=== PATIENT | female | born 1975 | race Caucasian/White ===

== ENCOUNTER → 2017-02-28 | Outpatient (CLI) | payer BC ==
--- NOTE | 2017-02-28 14:40 | Diagnostic Imaging Report ---
EXAMINATION: Bilateral diagnostic mammogram with implant displaced and implant included views. The current study was also evaluated with a Computer Aided Detection (CAD) system. INDICATION: Lumps in the medial and lateral aspects of the right breast. COMPARISON: No prior studies are available for comparison. FINDINGS: Bilateral retropectoral symmetric implants are seen. The breast parenchyma is extremely dense which may decrease mammographic sensitivity. There is an asymmetry along the upper aspect of the right breast which, on focal compression views, demonstrates persistent focal asymmetry with suggestion of a lobulated nodule measuring 1.2 cm. Other compression views in the medial aspect demonstrate loosely clustered punctate calcifications with no significant heterogeneity favoring a benign etiology. IMPRESSION: Confirmed nodule along the outer aspect of the right breast with a lobulated appearance. Background dense parenchyma. An ultrasound evaluation is pending. ACR BI-RADS Category 0: Incomplete. (Needs additional imaging evaluation). Result letter will be mailed to the patient. Note: At least 10% of breast cancer is not imaged by mammography. Dictated by: Dictated on workstation # [id number]
--- NOTE | 2017-02-28 15:06 | Diagnostic Imaging Report ---
EXAMINATION: Right breast ultrasound. INDICATION: Right breast lump. FINDINGS: The palpable lump is at the 10:30 position, 9 cm from the nipple. It is 1.0 x 0.7 x 1.4 cm in size, fairly homogeneous, hypoechoic and with peripheral internal vascularity seen with color Doppler. There is another nodule, measuring 1.4 x 1.3 x 0.7 cm, at the 4:30 position, 6 cm from the nipple. It appears minimally heterogenous, probably related to a calcification and cystic component with internal vascularity seen. There is no shadowing. Lobulated circumscribed margins are seen. At the 7:30 o'clock position, 6 cm from the nipple, there is a 0.5 x 0.4 x 0.5 cm homogeneous circumscribed nodule seen with no internal vascularity demonstrated with color Doppler. IMPRESSION: There are three nodules, the largest is 1.4 cm at the 4:30 o'clock position, 6 cm from the nipple. They are fairly homogeneous although the 4:30 o'clock position lesion is slightly heterogenous with probable internal cystic and calcific components. 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 Confirmation with an ultrasound-guided biopsy of the dominant slightly heterogenous lesion is recommended. The findings and recommendations were discussed with the patient before this dictation. ACR BI-RADS Category 4A: Low suspicion of malignancy. Result letter will be mailed to the patient. Note: At least 10% of breast cancer is not imaged by mammography. Report was faxed to the office of Dr. Ambika Yi at 3:05 p.m., by shara. Dictated by: Dictated on workstation # [id number]
== END ==
LOC: RAD 13:19
PROVIDERS: ATTEND Obstetrics & Gynecology
DX: N63 Unspecified lump in breast (principal); Z98.82 Breast implant status
CPT/HCPCS: 76641; 77066

== ENCOUNTER → 2017-03-08 | Outpatient (CLI) | payer BC ==
[~2017-03-08] VITALS: Ht 172.7 cm; Wt 72.6 kg
[2017-03-08 15:18] VITALS: BP 118/64
[2017-03-08] MEDS: LIDOCAINE 1% INJ 20 ML (XYLOCAINE) VIAL INJ ONE (15:34)
[2017-03-08 16:03] VITALS: BP 112/68
--- NOTE | 2017-03-08 16:28 | Diagnostic Imaging Report ---
EXAMINATION: Ultrasound-guided biopsy of a breast mass. A metallic clip placed to tatum biopsy site. INDICATION: Right breast mass. CONSENT: Informed consent was obtained from the patient. The risks, benefits, potential complications and alternatives were reviewed and all questions answered to the patient's satisfaction. FINDINGS: Ultrasound images demonstrate a hypoechoic mass at 4:30 o'clock position, 6 CM from the nipple. PROCEDURE: After sterile preparation and draping, 1% lidocaine was utilized for local anesthesia. A 13-gauge guide needle was introduced under live ultrasound guidance to the level of the lesion. Good needle position was documented with ultrasound images. 14-gauge biopsy needle was utilized and core biopsies were performed. Multiple samples were obtained and sent to pathology. A metallic clip was placed to tatum the site of the biopsy. A subsequent mammogram is performed and confirms the proper positioning of the clip. The patient tolerated the procedure well with no immediate complications. 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 BI-RADS 4A. Dictated by: Dictated on workstation # [id number]
--- NOTE | 2017-03-08 20:29 | Diagnostic Imaging Report ---
EXAMINATION: CC and lateral projection views and the implant displaced projection were performed. INDICATION: Documentation of clip position after ultrasound-guided biopsy. FINDINGS: Satisfactory clip position is seen in the medial inferior aspect of the right breast after ultrasound-guided biopsy. The nodule is not visible by mammography, probably obscured by the underlying dense parenchyma. IMPRESSION: Satisfactory clip position in the inferior medial aspect of the right breast. Pathology results are pending. ACR BI-RADS Category 4A: Low suspicion of malignancy. Result letter will be mailed to the patient. Note: At least 10% of breast cancer is not imaged by mammography. Dictated by: Dictated on workstation # [id number]
== END ==
LOC: RAD 14:32
PROVIDERS: ATTEND Obstetrics & Gynecology
DX: N63 Unspecified lump in breast (principal)
CPT/HCPCS: 19083

== ENCOUNTER → 2018-04-26 | Outpatient (CLI) | payer BC ==
--- NOTE | 2018-04-26 15:57 | Diagnostic Imaging Report ---
INDICATION: Routine screening. COMPARISON: 02/28/2017. TECHNIQUE: 2D and 3D bilateral screening mammography was performed with CAD. FINDINGS: Bilateral breast implants are again noted. The implant contours are smooth. No evidence of extracapsular rupture is seen. Both breasts are heterogeneously dense, limiting the sensitivity of mammography. A biopsy clip in the medial right breast is seen. There are benign calcifications present. No new mass or malignant appearing microcalcifications are seen. The axillae are unremarkable. IMPRESSION: Stable bilateral mammograms. No mammographic features suspicious for malignancy are identified. ACR BI-RADS Category 2: Benign findings. Result letter will be mailed to the patient. Note: At least 10% of breast cancer is not imaged by mammography. Dictated by: Dictated on workstation # [id number]
== END ==
LOC: RAD 14:00
PROVIDERS: ATTEND Nurse Practitioner
DX: Z12.31 Encounter for screening mammogram for malignant neoplasm of breast (principal)
CPT/HCPCS: 77067

== ENCOUNTER → 2020-05-07 | Outpatient (CLI) | payer BC ==
--- NOTE | 2020-05-10 09:51 | Diagnostic Imaging Report ---
INDICATION: Routine screening. COMPARISON: 04/26/2018 and -02/28/2017. TECHNIQUE: 2D and 3D bilateral screening mammography was performed with CAD. FINDINGS: Both breasts are heterogeneously dense, limiting the sensitivity of mammography. Bilateral subpectoral breast implants are again noted. The implant contours are smooth. A biopsy clip in the medial right breast is again noted. There are benign calcifications in both breasts. The breast parenchymal pattern appears to be stable. No dominant mass or malignant appearing microcalcifications are seen. The axillae are unremarkable. IMPRESSION: No mammographic features suspicious for malignancy are identified. ACR BI-RADS Category 2: Benign findings. Result letter will be mailed to the patient. Note: At least 10% of breast cancer is not imaged by mammography. Dictated by: Dictated on workstation # [id number]
== END ==
LOC: RAD 14:00
PROVIDERS: ATTEND Nurse Practitioner Women's Health
DX: Z12.31 Encounter for screening mammogram for malignant neoplasm of breast (principal)
CPT/HCPCS: 77063; 77067

== ENCOUNTER → 2021-09-27 | Outpatient (CLI) | payer BC ==
--- NOTE | 2021-09-27 17:50 | Diagnostic Imaging Report ---
INDICATION: Routine screening. COMPARISON is made with prior mammograms 05/07/2020 and 04/26/2018. 2-D and 3-D bilateral screening mammography was performed with CAD. Bilateral subpectoral breast implants are noted. Implant contours are smooth. Both breasts are heterogeneously dense, limiting the sensitivity of mammography. There are benign calcifications in both breasts. A biopsy marker clip in the lower inner right breast is again noted. No mass or malignant-appearing microcalcifications are seen. Axillae are unremarkable. IMPRESSION: BI-RADS Category 2 No mammographic features suspicious for malignancy are identified. ACR BI-RADS Category 2: Benign findings. Result letter will be mailed to the patient. Note: At least 10% of breast cancer is not imaged by mammography. Dictated by: Dictated on workstation # [id number]
== END ==
LOC: RAD 13:15
PROVIDERS: ATTEND Obstetrics & Gynecology
DX: Z12.31 Encounter for screening mammogram for malignant neoplasm of breast (principal)
CPT/HCPCS: 77063; 77067

== ENCOUNTER → 2022-09-29 | Outpatient (CLI) | payer BC ==
--- NOTE | 2022-10-03 13:57 | Diagnostic Imaging Report ---
INDICATION: Routine screening. Comparison is made with prior mammogram from 09/27/2021 and 05/07/2020. 2-D and 3-D bilateral screening mammography was performed with CAD. Bilateral subpectoral breast implants are noted. Implant contours are smooth. There is no evidence of extracapsular rupture. Both breasts are heterogeneously dense, limiting the sensitivity of mammography. A biopsy marker clip lower inner right breast is again noted. There are scattered benign calcifications throughout both breasts. No mass or malignant-appearing microcalcifications are seen. Axillae are unremarkable. IMPRESSION: No mammographic features suspicious for malignancy are identified. ACR BI-RADS Category 2: Benign findings. Result letter will be mailed to the patient. Note: At least 10% of breast cancer is not imaged by mammography. BI-RADS Category 2 Dictated by: Dictated on workstation # [id number]
== END ==
LOC: RAD 14:27
PROVIDERS: ATTEND Nurse Practitioner Women's Health
DX: Z12.31 Encounter for screening mammogram for malignant neoplasm of breast (principal)
CPT/HCPCS: 77063; 77067